=== PATIENT | male | born 1995 | race Caucasian/White ===

== ENCOUNTER 2019-01-07 10:11 | Emergency (ER) | payer OTHER ==
--- NOTE | 2019-01-07 10:16 | UC ---
Hand/Wrist HPI - HPI Summary HPI Summary: 23 yo male presents with left thumb pain for the last 4 days. 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 About 4 days ago he started to have pain at the MCP of his left thumb. He is right handed. Since that time the area has gotten more painful, red, and swollen. He has not applied ice or taken anything OTC. Pain is worse with movement and palpation. - History Of Current Complaint Stated Complaint: L THUMB PAIN Time Seen by Provider: 01/07/19 10:16 Hx Obtained From: Patient Onset/Duration: Gradual Onset Severity Initially: Mild Severity Currently: Moderate Pain Intensity: 5 Pain Scale Used: 0-10 Numeric - Allergies/Home Medications Allergies/Adverse Reactions: Allergies Allergy/AdvReac Type Severity Reaction Status Date / Time azithromycin Allergy Hives Verified 01/07/19 10:16 PMH/Surg Hx/FS Hx/Imm Hx - Additional Past Medical History Additional PMH: None - Surgical History Surgical History: Yes Surgery Procedure, Year, and Place: Appendectomy. Tonsilectomy - Family History Known Family History: Positive: Diabetes Negative: Hypertension - Social History Occupation: Employed Full-time Lives: With Family Alcohol Use: Daily Alcohol Amount: Multi times per week, multiple beers Substance Use Type: Marijuana Smoking Status (MU): Heavy Every Day Tobacco Smoker Type: Cigarettes, Smokeless Tobacco Amount Used/How Often: 1/2 PPD Length of Time of Smoking/Using Tobacco: began 17 years Have You Smoked in the Last Year: Yes Household Exposure Type: Cigarettes Review of Systems All Other Systems Reviewed And Are Negative: Yes Constitutional: Positive: Negative Skin: Positive: Negative Respiratory: Positive: Negative Cardiovascular: Positive: Negative Neurovascular: Positive: Negative Musculoskeletal: Positive: Other: - Left thumb pain Neurological: Positive: Negative Psychological: Positive: Negative Physical Exam - Summary Physical Exam Summary: GENERAL: NAD. WDWN. No pain distress. SKIN: No rashes, sores, lesions, or open wounds. CHEST: No accessory muscle use. Breathing comfortably and in no distress. CV: Pulses intact radial and ulnar. Cap refill <2seconds MSK: LEFT THUMB: TTP at MCP. Moderate edema here and at thenar eminence. Mild erythema and warmth. Pain during opposition and flexion. NTTP tendons. No snuffbox tenderness. NEURO: Alert. Sensations intact hand and all fingers. PSYCH: Age appropriate behavior. Triage Information Reviewed: Yes Vital Signs: Vital Signs: Temp Pulse Resp BP Pulse Ox 98.7 F 69 16 129/68 99 01/07/19 10:16 01/07/19 10:16 01/07/19 10:16 01/07/19 10:16 01/07/19 10:16 Vital Signs Reviewed: Yes Hand/Wrist Course/Dx - Course Course Of Treatment: XR: IMPRESSION: No fracture of the left thumb is noted. He denies increased meat, alcohol, or typical purine food increase of the last week - but his symptoms seem most consistent with gout. Given that he has not tried any OTC medications, will treat him for gout vs general joint pain/ swelling with prednisone and NSAIDs. Advised to rest and apply ice. If no improvement in 3-5 days to f/u with Orthopedics. - Differential Dx/Diagnosis Provider Diagnosis: Pain of left thumb Discharge - Sign-Out/Discharge Documenting (check all that apply): Patient Departure All imaging exams completed and their final reports reviewed: Yes - Discharge Plan Condition: Stable Disposition: HOME Prescriptions: Naproxen [Naproxen 500 mg tab] 500 mg PO BID #14 tablet. predniSONE TAB* [Deltasone 20 MG TAB*] 40 mg PO DAILY #6 tab Patient Education Materials: Gout (ED), Swollen Joint (ED) Referrals: Will Gay MD [Primary Care Provider] - Jose Murphy MD [Medical Doctor] - If Needed Additional Instructions: If you develop a fever, shortness of breath, chest pain, new or worsening symptoms - please call your PCP or go to the ED immediately. The X-Ray of your thumb was normal today. We will try treating you for general joint pain in the thumb as well as treating you for gout, as your history and symptoms today support this diagnosis. If your symptoms worsen or do not improve in 3-5 days, please call Orthopedics at the number below for further evaluation of your thumb pain. - Billing Disposition and Condition Condition: STABLE Disposition: Home
[2019-01-07 10:21] VITALS: BP 129/68
== END 2019-01-07 10:53 | disposition home or self-care (01) ==
LOC: UCEAST 10:11
DX: M25.542 Pain in joints of left hand (principal); F17.210 Nicotine dependence, cigarettes, uncomplicated
CPT/HCPCS: 99212; G0463